=== PATIENT | female | born 1990 | race Caucasian/White ===

== ENCOUNTER 2020-10-02 17:32 | Emergency (ER) | payer MEDICAID ==
[~2020-10-02] VITALS: Ht 167.6 cm; Wt 61.7 kg
[2020-10-02 17:32] VITALS: BP_SYST 140
[2020-10-02 18:08] LABS: BASOPHILS % (AUTO) 0.3 % (0.0-2.0); EOSINOPHILS % (AUTO) 0.3 % (0.0-4.0); HEMATOCRIT 39.1 % (36-48); HEMOGLOBIN 13.5 g/dL (12.0-16.0); LYMPHOCYTES # (AUTO) 1.1 K/uL (1.0-5.5); LYMPHOCYTES % (AUTO) 16.3 % (20.5-51.5); MEAN CORPUSCULAR HEMOGLOBIN 31 pg (27-31); MEAN CORPUSCULAR HGB CONC 34 % (32-36); MEAN CORPUSCULAR VOLUME 91 fL (79.0-98.0); MONOCYTES # (AUTO) 0.4 K/uL (0.0-1.0); NEUTROPHILS # (AUTO) 5.5 K/uL (1.8-7.7); NEUTROPHILS % (AUTO) 78.1 % (40.0-70.0); PLATELET COUNT (AUTO) 272 K/uL (130-430); RED BLOOD CELL COUNT(AUTO) 4.28 MIL/uL (4.2-6.2); RED CELL DISTRIBUTION WIDTH 12.4 % (9.0-15.0)
[2020-10-02 18:30] LABS: PROTHROMBIN TIME 10.4 SECS (9.5-12.5)
[2020-10-02 19:00] VITALS: BP_SYST 105
== END 2020-10-02 18:52 | disposition home or self-care (01) ==
LOC: SED 17:32
DX: R42 Dizziness and giddiness (principal)
CPT/HCPCS: 36415; 81025; 85025; 85610-TC; 86886; 86900; 86901; 99283